=== PATIENT | male | born 1960 | race Two or more races ===

== ENCOUNTER 2024-12-27 16:14 | Emergency (ER) | payer OTHER ==
[~2024-12-27] VITALS: Ht 177.8 cm; Wt 86.2 kg
[2024-12-27] MEDS ORDERED: BUSPIRONE HCL7.5 MG (16:25)
[2024-12-27] MEDS ORDERED: AMITRIPTYLINE H25 MG PO (16:26)
[2024-12-27] MEDS ORDERED: CELEXA10 MG PO (16:27)
[2024-12-27] MEDS ORDERED: LOSARTAN POTASS25 MG PO (16:27)
[2024-12-27] MEDS ORDERED: ALL DAY ALLERGY10 M3 (16:27)
[2024-12-27] MEDS ORDERED: ARNUITY ELLIP200 MCG IH (16:28)
[2024-12-27 18:17] LABS: COVID-19 AG NEGATIVE (NEGATIVE)
== END 2024-12-27 18:56 | disposition home or self-care (01) ==
LOC: ER 16:14
PROVIDERS: General Practice
DX: J06.9 Acute upper respiratory infection, unspecified (principal); Z20.822 Contact with and (suspected) exposure to COVID-19